=== PATIENT | female | born 1945 | race Caucasian/White ===

== ENCOUNTER 2017-02-23 04:40 | Observation (INO) | payer OTHER ==
[~2017-02-23] VITALS: Ht 162.6 cm; Wt 84.5 kg
--- NOTE | ~2017-02-23 | H ---
[facility] [place] [address] HISTORY AND PHYSICAL Name: ALBA MENDOZA Room #: 432-P [facility] Enrike M.RAnnabelle#: [id number] Admission: 02/23/17 Attend Phys: Alfred Hauser MD Discharge: 02/24/17 Date of : 47 Report #: [id number] THIS REPORT FOR: //name// CC: Mary Aaron DATE OF SERVICE: 02/23/2017 The patient is admitted to the hospital on 02/23/2017. CHIEF COMPLAINT: Right flank and lower abdominal pain. HISTORY OF PRESENT ILLNESS: The patient is a 71-year-old female with no major health problems, who started having right flank and right lower abdominal pain. Pain became progressively severe. The patient developed nausea. She denies vomiting. She presented to the Emergency Room. In the ER, the patient had CT of the abdomen that showed right-sided 7 mm distal ureteral stone and hydronephrosis. The patient has been medically stable. She is afebrile. Her blood work and urinalysis is unremarkable. The patient was treated with Dilaudid, as well as she received Zofran. She feels much better, and her pain currently is 2/10. She has already seen by urologist, and she is planned to have cystoscopy tomorrow. PAST MEDICAL HISTORY: 1. Dyslipidemia. 2. Mild asthma. CURRENT MEDICATIONS: The patient is currently on Advair 1 puff b.i.d., and Zocor 20 mg a day. FAMILY HISTORY: Negative for nephrolithiasis. SOCIAL HISTORY: The patient does not smoke cigarettes. She occasionally drinks alcohol. REVIEW OF SYSTEMS: As above in HPI section, all others negative. PHYSICAL EXAMINATION: GENERAL: The patient is healthy looking elderly female who is in no apparent distress. The patient looks younger than her stated age. HEENT: Pupils are equal. Eye movements are normal. Sclerae are anicteric. Oral mucosa is moist. Ear examination is deferred. The patient does not have [facility] [address] [place] [address] HISTORY AND PHYSICAL Name: ALBA MENDOZA Room #: 432-P [facility] M.R.#: [id number] Admission: 02/23/17 Attend Phys: Alfred Hauser MD Discharge: 02/24/17 Date of : 47 Report #: [id number] JVD. Carotid bruits are not appreciated. RESPIRATORY: Chest moves symmetrically with breathing. LUNGS: Clear to auscultation bilaterally. CARDIOVASCULAR: The patient has regular rhythm and rate. She has no murmurs, gallops or rubs. GASTROINTESTINAL: Abdomen is soft. The patient has right-sided tenderness. She has no rebound tenderness. Bowel sounds are present. MUSCULOSKELETAL: There is no edema, cyanosis or clubbing. Range of motion is normal. NEUROLOGIC: The patient is alert and oriented times 3. Her examination is grossly nonfocal. SKIN: Skin is dry and warm. The patient has no skin lesions. LABORATORY DATA: Basic metabolic profile and liver function tests are normal. GFR is 62. Troponin is undetectable. CBC with differential is essentially normal. Urinalysis shows trace blood, but there is no evidence of UTI. On CT of the abdomen, the patient has 7 mm distal ureteral stone and right-sided hydronephrosis. IMPRESSION: 1. Right-sided 7 mm distal ureteral stone and hydronephrosis. 2. Pain and nausea associated to above. 3. Dyslipidemia. 4. Mild asthma 5. Hypertension. PLAN: The patient is already seen by urologist. Consultation is very much appreciated. The patient will likely have cystoscopy and ureteral stent placement tomorrow. The patient is already on Dilaudid and Zofran, and her other symptoms are currently well controlled. Current treatment will be continued unchanged. The patient's blood pressure is slightly elevated. She has no history of hypertension, this is likely associated to pain. We will use hydralazine on p.r.n. basis while the patient is here. <ELECTRONICALLY SIGNED> By: Jenn Phillip MD 02/27/17 [id number] Jenn Phillip MD /nt
--- NOTE | ~2017-02-23 | EKG ---
[place] [address] [employer] [place] [address] ELECTROCARDIOGRAM REPORT Name: ALBA MENDOZA Room #: 432-P [facility]..#: [id number] Admission: 02/23/17 Attend Phys: Jessa Aaron Discharge: Date of : 47 Report #: [id number] THIS REPORT FOR: //name// [facility] ED Test Date: 2017-02-23 Test Time: 05:23:42 Pat Name: ALBA MENDOZA Department: Room: [facility] Gender: F Help Desk Assistant: [id number] : 1945 Requested By: Clarence Oneill Order Number: [id number] MD: Fidencio Pierce Measurements Intervals [place] Rate: 71 P: 71 [place]: 145 QRS: 30 QRSD: 101 T: 45 QT: 429 QTc: 467 Interpretive Statements Sinus rhythm Ventricular premature complex Nonspecific ST segment abnormality Baseline wander in lead(s) V5 No previous ECG available for comparison Electronically Signed On 02-23-2017 9:03:42 CDT by Fidencio Pierce [email or web address] <ELECTRONICALLY SIGNED> By: Fidencio Pierce MD, [facility] 02/23/17902 2 2 Fidencio Pierce MD, [facility] /EPI
[2017-02-23 04:57] VITALS: BP 135/75
[2017-02-23 05:12] LABS: ABSOLUTE NEUTROPHILS 7.1 thou/uL (1.4-8.2); BASOPHILS 0.3 % (0.0-2.0); EOSINOPHILS 0.1 % (0.0-3.0); HEMOGLOBIN 13.7 gm/dL (12.0-15.0); LYMPHOCYTES 12.6 % (24.0-44.0); MCH 26.7 pg (26.0-34.0); MCHC 32.7 g/dL (28.0-37.0); MCV 81.7 fL (80.0-100.0); PLATELET COUNT 281 thou/uL (150-400); RBC 5.14 mil/uL (4.20-5.00); RDW 13.8 % (10.5-14.5); WBC 8.5 thou/uL (4.0-11.0)
[2017-02-23 05:16] LABS: ANION GAP 11 mmol/L (7-16); BUN 20 mg/dL (7-18); CALCIUM 9.4 mg/dL (8.5-10.1); CHLORIDE 104 mmol/L (98-107); CO2 25 mmol/L (21-32); CREATININE 0.9 mg/dL (0.6-1.0); GLUCOSE 144 mg/dL (74-106); SODIUM 140 mmol/L (136-145)
[2017-02-23 05:19] LABS: URINE BILIRUBIN NEGATIVE (Negative); URINE BLOOD TRACE (Negative); URINE COLOR YELLOW; URINE GLUCOSE-RANDOM* NEGATIVE (Negative); URINE KETONES NEGATIVE (Negative); URINE LEUKOCYTES-REFLEX NEGATIVE (Negative); URINE PROTEIN (DIPSTICK) NEGATIVE (Negative); URINE SPECIFIC GRAVITY >= 1.030 (1.003-1.035); URINE UROBILINOGEN 0.2 E.U./dl (0.2-1.0)
[2017-02-23 05:22] LABS: ALKALINE PHOSPHATASE 75 U/L (46-116); SGOT 17 U/L (15-37); SGPT 26 U/L (30-65); TOTAL BILIRUBIN 0.6 mg/dL (<0.1-1.0); TOTAL PROTEIN 7.5 g/dL (6.4-8.2); TROPONIN-I < 0.04 ng/mL (<0.04-0.07)
[2017-02-23 05:28] LABS: MANUAL DIFF NO
[2017-02-23] MEDS ORDERED: ZOCOR20 MG PO (06:21)
[2017-02-23] MEDS ORDERED: ADVAIR HFA 230M12 GM INH (06:22)
[2017-02-23 07:57] VITALS: BP 130/76
[2017-02-23 09:07] VITALS: BP 148/87
[2017-02-23 15:44] VITALS: BP 98/67
[2017-02-23 21:30] VITALS: BP 98/60
[2017-02-24 04:30] VITALS: BP 117/65
[2017-02-24 06:57] LABS: ABSOLUTE NEUTROPHILS 4.8 thou/uL (1.4-8.2); BASOPHILS 0.5 % (0.0-2.0); EOSINOPHILS 1.6 % (0.0-3.0); HEMATOCRIT 35.2 % (37.0-47.0); LYMPHOCYTES 24.4 % (24.0-44.0); MCHC 32.5 g/dL (28.0-37.0); MCV 83.1 fL (80.0-100.0); MONOCYTES 8.5 % (1.0-8.0); RBC 4.24 mil/uL (4.20-5.00); RDW 13.6 % (10.5-14.5); WBC 7.4 thou/uL (4.0-11.0)
[2017-02-24 07:00] LABS: HEMOGLOBIN 11.4 gm/dL (12.0-15.0); MANUAL DIFF NO; PLATELET COUNT 196 thou/uL (150-400)
[2017-02-24 07:30] VITALS: BP 121/70
[2017-02-24 08:47] LABS: CREATININE 1.5 mg/dL (0.6-1.0); POTASSIUM 3.7 mmol/L (3.5-5.1)
[2017-02-24 14:46] VITALS: BP 115/76
[2017-02-24] MEDS ORDERED: FLOMAX0.4 MG PO (14:59)
[2017-02-24] MEDS ORDERED: HYDROCODON-ACE1 EAC7 PO (15:02)
[2017-02-24 15:07] VITALS: BP 115/76
== END 2017-02-24 15:18 | disposition home or self-care (01) ==
LOC: ER 04:40 → 4E 07:12 → EROBS 07:12 → 4E 08:53
PROVIDERS: Emergency Medicine; Internal Medicine Endocrinology, Diabetes & Metabolism
DX: N13.2 Hydronephrosis with renal and ureteral calculous obstruction (principal); E78.5 Hyperlipidemia, unspecified; J45.909 Unspecified asthma, uncomplicated; I10 Essential (primary) hypertension; R11.0 Nausea; K58.9 Irritable bowel syndrome, unspecified